=== PATIENT | male | born 1960 | race Two or more races ===

== ENCOUNTER 2025-01-07 11:42 | Outpatient (RCR) | payer MEDICAID, SELFPAY ==
--- NOTE | 2025-01-07 12:30 | XR_ITS ---
Examination: ANDREE, hepatobiliary radioisotope scan Gallbladder ejection fraction study. Date and time of exam: January 07, 2025 1210 hours INDICATIONS: Cirrhosis, diabetes, abdominal pain this week Technique: 5.8 mCi of 99M Hepatolite administered. Serial imaging then obtained from immediate through 60 minutes. 2.1 mcg selective catheter Kinevac administered for gallbladder ejection fraction study. Findings: Radioisotope activity within the liver is reasonably homogenous. Gallbladder, common bile duct small bowel activity noted Impression: Gallbladder activity Abnormal gallbladder ejection fraction, 4%, normal greater than 35%
== END 2025-01-12 23:59 | disposition home or self-care (01) ==
LOC: SNUC 11:42
PROVIDERS: PCP Nurse Practitioner Family; Referring Provider Specialist; Visit Provider Specialist
DX: R93.2 Abnormal findings on diagnostic imaging of liver and biliary tract (principal); K74.60 Unspecified cirrhosis of liver
CPT/HCPCS: 78227; A9537; J2805